=== PATIENT | female | born 1985 | race Two or more races ===

== ENCOUNTER 2023-10-01 08:57 | Emergency (ER) | payer MEDICAID ==
[~2023-10-01] VITALS: Ht 167.6 cm; Wt 120.0 kg
[2023-10-01 11:16] LABS: D-DIMER 0.71 MG/L FEU (0-0.50)
[2023-10-01] MEDS ORDERED: IBUP-1984 PO (12:35)
[2023-10-01 12:43] VITALS: BP 129/87; PULSE 57; RESP 16; TEMP 98.2; O2SAT 100
== END 2023-10-01 12:45 | disposition home or self-care (01) ==
LOC: ER 08:57
DX: M79.604 Pain in right leg (principal)
CPT/HCPCS: 36415; 85379; 93971; 99284

== ENCOUNTER 2024-01-20 20:15 | Emergency (ER) | payer MEDICAID ==
[~2024-01-20] VITALS: Ht 167.6 cm; Wt 188.0 kg
[2024-01-20 20:24] VITALS: BP 148/95; PULSE 83; RESP 16; TEMP 98; O2SAT 98
[2024-01-20] MEDS ORDERED: SULF1TAB49 PO (22:05)
[2024-01-20] MEDS: TETanus/Pertussis (Acell)/Diphther VAC/PF (Tdap-Adult) 0.5ml syringe IMVAC ONE (22:11)
== END 2024-01-20 22:20 | disposition home or self-care (01) ==
LOC: ER 20:16
DX: S91.312A Laceration without foreign body, left foot, initial encounter (principal); Z88.0 Allergy status to penicillin; W45.8XXA Other foreign body or object entering through skin, initial encounter; Y93.89 Activity, other specified; Y92.89 Other specified places as the place of occurrence of the external cause; Y99.8 Other external cause status
CPT/HCPCS: 90471; 90715; 99283

== ENCOUNTER 2024-02-03 12:44 | Emergency (ER) | payer MEDICAID ==
[~2024-02-03] VITALS: Ht 167.6 cm; Wt 130.2 kg
[2024-02-03] MEDS ORDERED: DOXY-412 PO (13:30)
[2024-02-03 13:48] VITALS: BP 147/78; PULSE 81; RESP 14; TEMP 98.2; O2SAT 99
== END 2024-02-03 13:50 | disposition home or self-care (01) ==
LOC: ER 12:45
DX: A64 Unspecified sexually transmitted disease (principal); Z88.0 Allergy status to penicillin
CPT/HCPCS: 99283

== ENCOUNTER 2024-10-20 00:09 | Emergency (ER) | payer MEDICAID, OTHER ==
[~2024-10-20] VITALS: Ht 167.6 cm; Wt 93.0 kg
[2024-10-20 00:46] LABS: BASOPHILS # (AUTO) 0.1 X10'3 (0-0.2); EOSINOPHILS # (AUTO) 0.1 X10'3 (0-0.9); EOSINOPHILS % (AUTO) 1.5 % (0-6); HEMATOCRIT 34.4 % (35.0-45.0); HEMOGLOBIN 11.7 g/dl (12.0-16.0); LYMPHOCYTES # (AUTO) 1.7 X10'3 (1.1-4.8); LYMPHOCYTES % (AUTO) 18.2 % (21-51); MEAN CORPUSCULAR HEMOGLOBIN 30.6 PG (27.0-31.0); MEAN CORPUSCULAR HGB CONC 33.9 g/dL (33.0-36.5); MEAN CORPUSCULAR VOLUME 90.4 FL (78-98); MEAN PLATELET VOLUME 8.8 FL (7.4-10.4); MONOCYTES # (AUTO) 0.9 X10'3 (0-0.9); MONOCYTES % (AUTO) 9.8 % (2-12); NEUTROPHILS # (AUTO) 6.5 X10'3 (1.8-7.7); NEUTROPHILS % (AUTO) 69.5 % (42-75); PLATELET COUNT 259 X10'3 (140-440); RED BLOOD COUNT 3.81 X10'6 (4.20-5.60); RED CELL DISTRIBUTION WIDTH 13.4 % (11.5-14.5); WHITE BLOOD COUNT 9.3 X10'3 (4.5-11.0)
[2024-10-20 01:00] LABS: ALANINE AMINOTRANSFERASE 23 U/L (12-78); ALBUMIN 3.5 G/DL (3.4-5.0); ALKALINE PHOSPHATASE 64 IU/L (46-116); ANION GAP 9 (8-16); ASPARTATE AMINO TRANSFERASE 19 U/L (10-37); BLOOD UREA NITROGEN 12 MG/DL (7-18); BUN/CREATININE RATIO 21.8 (10.0-20.0); CALCIUM 8.5 MG/DL (8.5-10.1); CHLORIDE 108 MMOL/L (99-107); CREATININE 0.55 MG/DL (0.40-0.90); GLUCOSE 104 MG/DL (70-104); LIPASE 32 U/L (16-77); MAGNESIUM 1.8 MG/DL (1.5-2.4); POTASSIUM 3.2 MMOL/L (3.5-5.1); SODIUM 142 MMOL/L (135-145); TOTAL CARBON DIOXIDE 25.1 MMOL/L (24-32); eCRCL 131 ML/MIN; eGFR > 90 ML/MIN
[2024-10-20] MEDS: potassium Cl 20 mEq SR tablet PO ONE (01:41)
[2024-10-20 01:42] LABS: ETHANOL < 10 MG/DL (<10)
[2024-10-20 02:05] VITALS: BP 100/69; PULSE 70; RESP 15; TEMP 98.2; O2SAT 99
== END 2024-10-20 02:13 | disposition home or self-care (01) ==
LOC: ER 00:09
DX: Z00.00 Encounter for general adult medical examination without abnormal findings (principal); F41.9 Anxiety disorder, unspecified; R53.1 Weakness; Z59.00 Homelessness unspecified; Z88.0 Allergy status to penicillin
CPT/HCPCS: 36415; 80053; 80320; 83690; 83735; 84484; 85025; 93005; 99284